=== PATIENT | female | born 1955 | race American Indian/Alaskan Native ===

== ENCOUNTER 2018-10-09 12:17 | Outpatient (CLI) | payer BC ==
--- NOTE | 2018-10-09 13:32 | XRay Report ---
CHEST TWO VIEWS: 10/09/18 12:17:00 CLINICAL: Mycosis fungoides. COMPARISON: 06/27/15 and 07/19/14 FINDINGS: Normal heart and pulmonary vasculature.Bilateral tiny calcified hilar granulomata. The lungs are normally expanded and clear. No pulmonary nodule or mass. No soft tissue mass. Mild degenerative changes in the spine. IMPRESSION: Old granulomatous disease. No evidence of tumor.
== END 2018-10-09 12:18 | disposition home or self-care (01) ==
LOC: SPVIMAG 12:17
PROVIDERS: ATTEND Internal Medicine Hematology & Oncology
DX: C84.09 Mycosis fungoides, extranodal and solid organ sites (principal); B49 Unspecified mycosis; E66.9 Obesity, unspecified; M47.814 Spondylosis without myelopathy or radiculopathy, thoracic region; J70.4 Drug-induced interstitial lung disorders, unspecified; Z91.040 Latex allergy status
CPT/HCPCS: 71046

== ENCOUNTER 2020-10-06 11:27 | Outpatient (CLI) | payer BC ==
--- NOTE | 2020-10-06 13:25 | XRay Report ---
CHEST 2 VIEWS INDICATION / CLINICAL INFORMATION: PREVENTATIVE - ANNUAL SCREENING FOR MYCOSOS B49. COMPARISON: 10/12/2019 FINDINGS: SUPPORT DEVICES: None. HEART / MEDIASTINUM: No significant abnormality. LUNGS / PLEURA: No significant pulmonary or pleural abnormality. No pneumothorax. ADDITIONAL FINDINGS: No significant additional findings. IMPRESSION: No significant abnormality or interval change from 10/12/2019. No radiographic evidence of active tube rculosis Signer Name: Dat Taveras MD FACR Signed: 10/06/2020 1:21 PM Workstation Name: [email or web address]
== END 2020-10-06 11:28 | disposition home or self-care (01) ==
LOC: SPVIMAG 11:27
PROVIDERS: ATTEND Internal Medicine Hematology & Oncology
DX: B49 Unspecified mycosis (principal)
CPT/HCPCS: 71046